=== PATIENT | female | born 1965 | race Caucasian/White ===

== ENCOUNTER → 2016-07-21 | Outpatient (CLI) | payer OTHER ==
--- NOTE | 2016-07-22 13:06 | MM ---
Reason for exam: screening (asymptomatic). Last mammogram was performed 1 year and 2 months ago. History: Patient is postmenopausal. Family history of breast cancer in mother and breast cancer in grandmother. Physical Findings: A clinical breast exam by your physician is recommended on an annual basis and results should be correlated with mammographic findings. MG Screening Mammo w CAD Bilateral CC and MLO view(s) were taken. Prior study comparison: May 17, 2015, right breast MG 3d work up w/cad RT. May 06, 2015, bilateral MG screening mammo w CAD. The breast tissue is heterogeneously dense. This may lower the sensitivity of mammography. Finding: There are few typically benign round calcifications in both breasts. There is no discrete abnormality. ASSESSMENT: Benign, BI-RAD 2 RECOMMENDATION: Routine screening mammogram of both breasts in 1 year.
== END | disposition home or self-care (01) ==
LOC: RADMAMWWP 08:12
PROVIDERS: ATTEND Family Medicine
DX: Z12.31 Encounter for screening mammogram for malignant neoplasm of breast (principal)

== ENCOUNTER 2017-07-27 07:50 | Day surgery (SDC) | payer OTHER ==
[2017-07-26 11:02] VITALS: BMI 23.9
[~2017-07-27 07:50] MED LIST: LACTATED RINGERS 1,000 ML IV SCH; LIDOCAINE 1% 20 ML VIAL (10MG/ML) FOR IV START INTRADERMA PRN
[2017-07-27 08:07] VITALS: TEMP 98
[2017-07-27] MEDS ORDERED: LACTATED RINGERS 1,000 ML IV ONE (08:09)
[2017-07-27] MEDS ORDERED: LIDOCAINE 1% INJ 10MG/ML (20 ML MDV) ONE (08:47)
[2017-07-27] MEDS ORDERED: PROPOFOL 10 MG/ML 20 ML VIAL IV ONE (08:47)
[2017-07-27 09:11] VITALS: RESP 16
--- NOTE | 2017-07-27 09:17 | P.PCN ---
Date of Procedure: 07/27/17 Procedure(s) Performed: Procedure: Esophagogastroduodenoscopy and biopsy. Preoperative diagnosis: Dysphagia. Postoperative diagnosis: 1. Esophageal corrugations raising the possibility of eosinophilic esophagitis. 2. Small sliding hiatal hernia with no definite stricture. 3. Mild gastritis and duodenitis. 4. Biopsies obtained from the duodenum, antrum and esophagus. Preparation sedation: Was provided by anesthesia. Brief clinical history: The patient is a 52-year-old female who is scheduled for this evaluation because of dysphagia of 1 & 1/2 years duration. The patient has to cut her food into smaller pieces, and despite that she has the sensation of food getting caught in her throat and at times has to bring it back up. There is no alarm symptoms. There is history of heartburn. The patient has also history of asthma. Procedure: With the patient on her left lateral decubitus position and after informed consent and adequate sedation, I passed the Olympus-GIF 160 video upper endoscope through the cricopharyngeus down the esophagus. The esophagus appeared corrugated and at the level of the GE junction, at around 40 cm from the incisors, it appeared somewhat narrowed but there was no definite stricture. There were no obvious erosions or ulcers. No Keane's esophagus. The endoscope was then passed into the stomach which was insufflated with air and inspected in detail including the retroflex view in the cardia. There was some mottling and erythema in the antrum but no ulcers or erosions. Pyloric channel did not show any ulcers. Duodenal bulb, post bulbar area and descending duodenum showed mild erythema and minimal friability but no ulcers or erosions. I obtained multiple biopsies from the duodenum, antrum and esophagus before the endoscope was withdrawn. The patient tolerated the procedure well. Plan: The patient was reassured. Will await pathology results and make further plans based on her course and biopsy results. I will be happy to see in the office if her symptoms persist.
[2017-07-27 09:27] VITALS: BP 144/88; PULSE 79
== END 2017-07-27 09:55 | disposition home or self-care (01) ==
LOC: ORWHC2ENDO 07:50
DX: K29.50 Unspecified chronic gastritis without bleeding (principal); K20.0 Eosinophilic esophagitis; K29.80 Duodenitis without bleeding; K44.9 Diaphragmatic hernia without obstruction or gangrene; I10 Essential (primary) hypertension; Z79.51 Long term (current) use of inhaled steroids; Z79.899 Other long term (current) drug therapy; Z88.5 Allergy status to narcotic agent
CPT/HCPCS: 88305; 88312; 43239; J2001; J2704

== ENCOUNTER → 2017-11-18 | Outpatient (CLI) | payer OTHER ==
--- NOTE | 2017-11-19 09:09 | MM ---
Reason for exam: screening (asymptomatic). Last mammogram was performed 1 year and 4 months ago. History: Patient is postmenopausal. Family history of breast cancer in mother and breast cancer in grandmother. Physical Findings: A clinical breast exam by your physician is recommended on an annual basis and results should be correlated with mammographic findings. MG Screening Mammo w CAD Bilateral CC and MLO view(s) were taken. Prior study comparison: July 21, 2016, bilateral MG screening mammo w CAD. May 17, 2015, right breast MG 3d work up w/cad RT. The breast tissue is heterogeneously dense. This may lower the sensitivity of mammography. There are typically benign round calcifications in both breasts. There is no discrete abnormality. ASSESSMENT: Benign, BI-RAD 2 RECOMMENDATION: Routine screening mammogram of both breasts in 1 year.
== END | disposition home or self-care (01) ==
LOC: RADMAMWWP 11:07
PROVIDERS: ATTEND Family Medicine
DX: Z12.31 Encounter for screening mammogram for malignant neoplasm of breast (principal)
CPT/HCPCS: 77067

== ENCOUNTER 2022-07-14 10:53 | Day surgery (SDC) | payer OTHER ==
[~2022-07-14 10:53] MED LIST changes: +LIDOCAINE 1% (10MG/ML) FOR IV START INTRADERMA PRN; -LIDOCAINE 1% 20 ML VIAL (10MG/ML) FOR IV START INTRADERMA PRN
[2022-07-14 12:01] VITALS: TEMP 97.3
[2022-07-14] MEDS ORDERED: PROPOFOL 10 MG/ML 20 ML VIAL IV ONE (12:34)
--- NOTE | 2022-07-14 12:40 | P.GSHP ---
History of Present Illness H&P Date: 07/14/22 Chief Complaint: Colon cancer screening 57-year-old female here for colonoscopy. Last colonoscopy 10 or more years ago. No bowel complaints. No family history of colon cancer. Past Medical History Past Medical History: Asthma, GERD/Reflux, Hypertension History of Any Multi-Drug Resistant Organisms: None Reported Past Surgical History: Hysterectomy, Orthopedic Surgery Additional Past Surgical History / Comment(s): BILAT BUNIONECTOMY. ORIF RT ANKLE Past Anesthesia/Blood Transfusion Reactions: No Reported Reaction Past Psychological History: No Psychological Hx Reported Past Alcohol Use History: Occasional Additional Past Alcohol Use History / Comment(s): QUIT SMOKING 2007 Past Drug Use History: None Reported - Past Family History Mother Family Medical History: Cancer Medications and Allergies Home Medications Medication Instructions Recorded Confirmed Type Budesonide-Formot 160-4.5 Mcg 2 puff INHALATION QA 07/14/17 07/14/22 History [Symbicort 160-4.5 Mcg Inhaler] amLODIPine BESYLATE/BENAZEPRIL 1 each PO QA 07/14/17 07/14/22 History [amLODIPine BESYLATE/BENAZEPRIL 5-10 MG] Pantoprazole [Protonix] 40 mg PO DAILY 07/14/22 07/14/22 History Pravastatin Sodium 80 mg PO DAILY 07/14/22 07/14/22 History Allergies Allergy/AdvReac Type Severity Reaction Status Date / Time codeine AdvReac Nausea & Verified 07/14/22 11:57 Vomiting Surgical - Exam Vital Signs Temp Pulse Resp BP Pulse Ox 97.3 F L 93 18 172/84 96 07/14/22 11:57 07/14/22 11:57 07/14/22 11:57 07/14/22 11:57 07/14/22 11:57 Physical exam: General: Well-developed, well-nourished HEENT: Normocephalic, sclerae nonicteric Abdomen: Nontender, nondistended Extremities: No edema Neuro: Alert and oriented Assessment and Plan (1) Colon cancer screening Narrative/Plan: Will proceed with colonoscopy Current Visit: Yes Status: Acute Code(s): Z12.11 - ENCOUNTER FOR SCREENING FOR MALIGNANT NEOPLASM OF COLON SNOMED Code(s): 360362914
--- NOTE | 2022-07-14 12:52 | P.PCN ---
Date of Procedure: 07/14/22 Procedure(s) Performed: PREOPERATIVE DIAGNOSIS: Colon cancer screening POSTOPERATIVE DIAGNOSIS: Very poor prep PROCEDURE: Colonoscopy ANESTHESIA: MAC SURGEON: John Bowman M.D. SPECIMENS: None ENDOSCOPIC PROCEDURE: The patient was placed on the endoscopy table in the left decubitus position. The Olympus colonoscope was inserted into the anus and passed under direct visualization to the mid transverse colon. The patient had solid stool seen scattered throughout the colon that was visualized. Once we reached the transverse colon the volume of stool seemed greater and the scope was withdrawn. The mucosa was not well visualized. The patient was taken to the recovery room in stable condition per anesthesia guidelines. RECOMMENDATIONS: Patient will require repeat colonoscopy
[2022-07-14 12:58] VITALS: RESP 16
[2022-07-14 13:11] VITALS: BP 144/86; PULSE 82
== END 2022-07-14 13:35 | disposition home or self-care (01) ==
LOC: ORWHC2ENDO 10:53
PROVIDERS: ATTEND Surgery
DX: Z12.11 Encounter for screening for malignant neoplasm of colon (principal); J45.909 Unspecified asthma, uncomplicated; K21.9 Gastro-esophageal reflux disease without esophagitis; I10 Essential (primary) hypertension; Z98.890 Other specified postprocedural states; Z87.891 Personal history of nicotine dependence; Z86.59 Personal history of other mental and behavioral disorders; Z79.51 Long term (current) use of inhaled steroids; Z79.899 Other long term (current) drug therapy; Z88.5 Allergy status to narcotic agent
CPT/HCPCS: 45378; J2704

== ENCOUNTER → 2022-09-15 | Day surgery (SDC) | payer OTHER ==
[~2022-09-15] MED LIST changes: -LIDOCAINE 1% (10MG/ML) FOR IV START INTRADERMA PRN
== END ==
LOC: ORWHC2ENDO 09:45
PROVIDERS: ATTEND Surgery
DX: Z12.11 Encounter for screening for malignant neoplasm of colon (principal)

== ENCOUNTER 2023-01-12 10:45 | Day surgery (SDC) | payer OTHER ==
[2023-01-11 09:12] VITALS: BMI 20.5
[~2023-01-12 10:45] MED LIST changes: -LACTATED RINGERS 1,000 ML IV SCH; +LIDOCAINE 1% (10MG/ML) FOR IV START INTRADERMA PRN; +ONDANSETRON 4 MG/2 ML VIAL IVP PRN
[2023-01-12] MEDS: LACTATED RINGERS 1,000 ML IV SCH ×2 (11:13→11:49)
[2023-01-12 11:29] VITALS: TEMP 97
[2023-01-12] MEDS ORDERED: PROPOFOL 10 MG/ML 20 ML VIAL IV ONE (11:55)
--- NOTE | 2023-01-12 12:03 | P.GSHP ---
History of Present Illness H&P Date: 01/12/23 Chief Complaint: Colon cancer screening 57-year-old female here for colonoscopy. Patient has history of previous colon polyps many years ago. Last attempt at colonoscopy was June of this year and the prep was poor. No bowel complaints. Past Medical History Past Medical History: Asthma, Hyperlipidemia, Hypertension History of Any Multi-Drug Resistant Organisms: None Reported Past Surgical History: Hysterectomy, Orthopedic Surgery Additional Past Surgical History / Comment(s): BILAT BUNIONECTOMY. ORIF RT ANKLE Past Anesthesia/Blood Transfusion Reactions: No Reported Reaction Smoking Status: Former smoker - Past Family History Mother Family Medical History: Cancer Medications and Allergies Home Medications Medication Instructions Recorded Confirmed Type Budesonide-Formot 160-4.5 Mcg 2 puff INHALATION QAM 07/14/17 01/12/23 History [Symbicort 160-4.5 Mcg Inhaler] amLODIPine BESYLATE/BENAZEPRIL 1 each PO QAM 07/14/17 01/11/23 History [amLODIPine BESYLATE/BENAZEPRIL 5-10 MG] Pantoprazole [Protonix] 40 mg PO DAILY 07/14/22 01/11/23 History Pravastatin Sodium 80 mg PO DAILY 07/14/22 01/11/23 History Allergies Allergy/AdvReac Type Severity Reaction Status Date / Time codeine AdvReac Nausea & Verified 01/11/23 09:16 Vomiting Surgical - Exam Vital Signs Temp Pulse Resp BP Pulse Ox 97.0 F L 66 88 H 153/72 97 01/12/23 11:27 01/12/23 11:27 01/12/23 11:27 01/12/23 11:27 01/12/23 11:27 Physical exam: General: Well-developed, well-nourished HEENT: Normocephalic, sclerae nonicteric Abdomen: Nontender, nondistended Extremities: No edema Neuro: Alert and oriented Assessment and Plan (1) Colon cancer screening Narrative/Plan: Will proceed with colonoscopy at this time. Current Visit: No Status: Acute Code(s): Z12.11 - ENCOUNTER FOR SCREENING FOR MALIGNANT NEOPLASM OF COLON SNOMED Code(s): 689257782
--- NOTE | 2023-01-12 12:11 | P.PCN ---
Date of Procedure: 01/12/23 Procedure(s) Performed: PREOPERATIVE DIAGNOSIS: Colon cancer screening, history of polyps POSTOPERATIVE DIAGNOSIS: Poor prep, diverticulosis PROCEDURE: Colonoscopy ANESTHESIA: MAC SURGEON: John Bowman M.D. SPECIMENS: None ENDOSCOPIC PROCEDURE: The patient was placed on the endoscopy table in the left decubitus position. The Olympus colonoscope was inserted into the anus and passed under direct visualization to the mid transverse colon. The patient had retained solid stool throughout the colon. I could not visualize the mucosa well beyond the mid transverse colon and the scope withdrawn. There was no gross abnormalities throughout the transverse descending sigmoid and rectum with the exception of diverticulosis. Digital rectal examination was normal. The patient was taken to the recovery room in stable condition per anesthesia guidelines. RECOMMENDATIONS: Patient will require 2 day or more bowel cleanse for her next attempt at colonoscopy. We'll discuss further with the patient.
[2023-01-12 12:19] VITALS: RESP 16
[2023-01-12 12:38] VITALS: BP 110/70; PULSE 80
== END 2023-01-12 12:58 | disposition home or self-care (01) ==
LOC: ORWHC2ENDO 10:45
PROVIDERS: ATTEND Surgery
DX: Z12.11 Encounter for screening for malignant neoplasm of colon (principal); K57.30 Diverticulosis of large intestine without perforation or abscess without bleeding; J45.909 Unspecified asthma, uncomplicated; I10 Essential (primary) hypertension; E78.5 Hyperlipidemia, unspecified; Z86.010 Personal history of colon polyps; Z90.710 Acquired absence of both cervix and uterus; Z98.890 Other specified postprocedural states; Z87.891 Personal history of nicotine dependence; Z79.51 Long term (current) use of inhaled steroids; Z79.899 Other long term (current) drug therapy; Z88.5 Allergy status to narcotic agent
CPT/HCPCS: 45378; J2704

== ENCOUNTER → 2024-07-05 | Outpatient (CLI) | payer OTHER ==
--- NOTE | 2024-07-06 10:00 | MM ---
Reason for Exam: Screening (asymptomatic). Last mammogram was performed 6 year(s) and 8 month(s) ago. Patient History: Menarche at age 10. First Full-Term at age 24. Left ovary removed at age 37. Right ovary removed at age 37. Hysterectomy at age 37. Postmenopausal. Maternal grandmother had breast cancer, age 50. Mother had breast cancer under age 50. Risk Values: Tracy 5 year model risk: 2.9%. NCI Lifetime model risk: 13.5%. Prior Study Comparison: 05/17/2015 Right Diagnostic Mammogram, [facility]. 07/21/2016 Bilateral Screening Mammogram, [facility]. 11/18/2017 Bilateral Screening Mammogram, [facility]. Tissue Density: The breasts are heterogeneously dense, which may obscure small masses. Findings: Analyzed By CAD. Some benign-appearing vascular calcification bilaterally is identified. There are a few benign-appearing round calcifications bilaterally. There is a new 8mm focal asymmetry in the middle depth upper aspect right breast on MLO view less well seen on the CC view that warrants further workup. Overall Assessment: Incomplete: need additional imaging evaluation, BI-RAD 0 Management: Diagnostic Mammogram of the right breast. Possible summation density versus true lesion. [facility] will attempt to contact patient to return for supplemental views and ultrasound if indicated. Patient should continue monthly self-breast exams. A clinical breast exam by your physician is recommended on an annual basis. This exam should not preclude additional follow-up of suspicious palpable abnormalities. Note on Tracy scores and lifetime risk: 1. A Tracy score greater than 3% is considered moderate risk. If this is the case, consider specialist referral to assess eligibility for a risk reducing agent. 2. If overall lifetime risk for the development of breast cancer is 20% or higher, the patient may qualify for future screening with alternating mammogram and breast MRI. [facility], , 07/06/2024 9:57 AM. Electronically signed and approved by: Vu Zepeda M.D.
== END | disposition home or self-care (01) ==
LOC: RADMAMWWP 16:50
PROVIDERS: ATTEND Family Medicine
DX: Z12.31 Encounter for screening mammogram for malignant neoplasm of breast (principal); R92.333 Mammographic heterogeneous density, bilateral breasts; Z78.0 Asymptomatic menopausal state; Z80.3 Family history of malignant neoplasm of breast
CPT/HCPCS: 77067

== ENCOUNTER → 2024-12-27 | Outpatient (CLI) | payer BC ==
--- NOTE | 2024-12-27 17:29 | XR ---
EXAMINATION TYPE: XR knee complete bilateral DATE OF EXAM: 12/27/2024 5:06 PM COMPARISON: None CLINICAL INDICATION: Female, 59 years old with history of [id number] ASHLEY KNEE PAIN; [facility], pain TECHNIQUE: XR knee complete bilateral 3 views submitted. FINDINGS: No evidence of any acute osseous pathology or soft tissue swelling. Tricompartmental oste ophyte formation involving the femoral condyles, tibial plateau and patella. Moderate to severe joint thickening most pronounced in the medial aspect of both knees. Joint space narrowing. IMPRESSION: 1. No acute osseous pathology. 2. Moderate to severe tricompartmental osteoarthritic changes. [facility], , 12/27/2024 5:27 PM
== END | disposition home or self-care (01) ==
LOC: RADXRYALE 16:54
PROVIDERS: ATTEND Physician Assistant Medical
DX: M17.12 Unilateral primary osteoarthritis, left knee (principal); M17.11 Unilateral primary osteoarthritis, right knee